=== PATIENT | male | born 1980 ===

== ENCOUNTER 2024-02-28 08:38 | Emergency (ER) | payer OTHER ==
[~2024-02-28] VITALS: Ht 185.4 cm; Wt 101.1 kg
[2024-02-28] VITALS (11 sets, daily range): BP systolic 122–179; BP diastolic 75–134
[2024-02-28] MEDS ORDERED: KETOROLAC TROMETHAMINE 30 MG/ML SDV IV ONE (09:25)
[2024-02-28 09:42] LABS: BASO% 0.5 % (0-3); EOS% 1.2 % (0-8); IMMATURE GRANULOCYTES 0.3 % (0.0-5.0); LYMPH% 27.3 % (15-41); MEAN CELL VOLUME 92.9 fL CALC (80.0-100.0); MEAN CORPUSCULAR HGB 30.3 pG CALC (26.0-32.0); MEAN CORPUSCULAR HGB CONC 32.6 g/dL CAL (32.0-36.0); MONO% 13.2 % (2-13); NEUT# 4.32 thou/uL (1.82-7.42); NEUT% 57.5 % (42-76); RED BLOOD COUNT 4.95 mill/uL (4.70-6.10); RED CELL DISTRI WIDTH 11.7 % (11.5-15.5)
[2024-02-28 09:55] LABS: ALBUMIN 4.2 g/dL (3.2-5.0); BILIRUBIN, TOTAL 0.4 mg/dL (0.2-1.3); CREATININE 1.1 mg/dL (0.7-1.3); POTASSIUM 4.1 mmol/l (3.5-5.1); TOTAL PROTEIN 7.1 g/dL (6.3-8.2)
[2024-02-28 10:37] LABS: URINE BILIRUBIN - DIPSTICK Negative (NEGATIVE); URINE BLOOD DIPSTICK Trace-intact (NEGATIVE); URINE COLOR Yellow; URINE GLUCOSE - DIPSTICK Negative (NEGATIVE); URINE KETONE Negative (NEGATIVE); URINE LEUK ESTERASE Trace (NEGATIVE); URINE NITRITE - DIPSTICK Negative (Negative); URINE PH 6.5 (4.5-8.0); URINE PROTEIN - DIPSTICK Negative (NEG-TRACE); URINE UROBILINOGEN - DIPSTICK 0.2 E.U./dL (0.2)
[2024-02-28] MEDS ORDERED: NAPROXEN500 MG PO (11:39)
[2024-02-28] MEDS ORDERED: DOXYCYCL HYC100 M4 PO (11:39)
== END 2024-02-28 12:41 | disposition home or self-care (01) ==
LOC: ED 08:38
PROVIDERS: Family Medicine
DX: N45.2 Orchitis (principal)